=== PATIENT | female | born 1980 | race Caucasian/White ===

== ENCOUNTER 2017-01-06 08:17 | Observation (INO) | payer BC ==
[2017-01-05 10:22] VITALS: BP 122/94
[2017-01-05 11:01] LABS: HEMOGLOBIN 14.6 g/dL (11.7-16.4)
[2017-01-05 11:07] LABS: BLOOD UREA NITROGEN 14 mg/dL (7-18)
[~2017-01-06] VITALS: Ht 180.3 cm; Wt 58.0 kg
[~2017-01-06 08:17] MED LIST: IBUP200T5 PO; METO50TA4 PO
[2017-01-06] MEDS ORDERED: SODIUM CHLORIDE 0.9% 1,000 ML IV SCH (08:36)
[2017-01-06] MEDS ORDERED: MIDAZOLAM 1 MG/ML, 5ML ONE (11:39)
[2017-01-06] MEDS ORDERED: LIDOCAINE 2%, 20ML ONE (11:39)
[2017-01-06] MEDS ORDERED: ISOPROTERENOL 0.2MG/ML, 5ML ONE (11:39)
[2017-01-06] MEDS ORDERED: FENTANYL PF 100 MCG/2ML ONE (11:39)
[2017-01-06 17:27] VITALS: BP 116/72
[2017-01-06] MEDS ORDERED: ZOLPIDEM 5MG TABLET PO PRN (17:30)
[2017-01-06] MEDS ORDERED: IBUPROFEN MC SCH (17:30)
[2017-01-06 17:36] VITALS: BP 116/86
[2017-01-06 19:00] VITALS: BP 110/70
[2017-01-06 19:51] VITALS: BP 109/67
[2017-01-07 01:21] VITALS: BP 100/61
[2017-01-07 07:41] VITALS: BP 101/63
[2017-01-07 07:58] VITALS: BP 111/72
[2017-01-07 08:00] VITALS: BP 107/75
[2017-01-07] MEDS ORDERED: SODIUM CHLORIDE 0.9%, 500ML IVBOLUS ONE (09:00)
== END 2017-01-07 10:58 | disposition home or self-care (01) ==
LOC: CACL 08:17 → 5SO 17:08 → CACL 17:09 → 5SO 17:09
PROVIDERS: ADMIT Internal Medicine Cardiovascular Disease; ATTEND Internal Medicine Cardiovascular Disease
DX: I47.1 Supraventricular tachycardia (principal)
CPT/HCPCS: 36415; 71020; 80048; 84703; 85025; 85610; 85730; 93005; 93613; 93621; 93623; 93653; C1730; C1766; C1894; C2630; G0378; J2250; J3010; J3490; J7040